=== PATIENT | female | born 1960 | race African-American/Black ===

== ENCOUNTER 2021-12-07 12:49 | Emergency (ER) | payer MEDICAID ==
[~2021-12-07] VITALS: Ht 165.1 cm; Wt 79.0 kg
[~2021-12-07 12:49] MED LIST: CHOL100046 PO; GABA-290 PO; MULT-1146 PO; OYSTER SHELL CA PO; SULF1TAB48 PO; [UNRECOGNIZED DRUG - OTHER] PO; prezista PO; vitamin c PO
[2021-12-07] MEDS ORDERED: ACETAMINOPHEN 325MG TABLET PO ONE (13:30)
[2021-12-07] MEDS ORDERED: KETOROLAC 30MG/ML VIAL IV STA (14:03)
[2021-12-07] MEDS ORDERED: ONDANSETRON 4MG ODT PO STA (14:03)
[2021-12-07 15:10] LABS: BASOPHILS % 0.4 % (0.0-2.0); EOSINOPHILS % 0.4 % (0.0-5.0); HEMATOCRIT. 31.1 % (36.0-48.0); HEMOGLOBIN. 10.1 g/dL (12.0-16.0); MEAN CORPUSCULAR HEMOGLOBIN 29.6 pg (28.0-32.0); MEAN CORPUSCULAR VOLUME 91.7 fL (81.0-99.0); MEAN PLATELET VOLUME 9.7 fl (7.4-10.4); MONOCYTES % 8.5 % (2.0-8.0); NEUTROPHILS % 75.7 % (40.0-76.0); PLATELET 287 x1000/uL (130-400); RED CELL DISTRIBUTION WIDTH 13.3 % (11.6-14.6)
[2021-12-07 15:16] LABS: CHLORIDE 103 mEq/L (98-107)
[2021-12-07] MEDS ORDERED: NAPROXEN 250MG TABLET PO NR (16:15)
[2021-12-07] MEDS ORDERED: BICT1TAB PO (16:47)
[2021-12-07] MEDS ORDERED: TOPUD MT (16:47)
[2021-12-07 17:13] VITALS: BP 144/68
== END 2021-12-07 17:15 | disposition home or self-care (01) ==
LOC: ER 12:49
DX: U07.1 COVID-19 (principal); D53.9 Nutritional anemia, unspecified; R74.01 Elevation of levels of liver transaminase levels
CPT/HCPCS: 36415; 71045; 80053; 83605; 85025; 87426; 93005; 96374; 99285; J1885; Q0162

== ENCOUNTER 2023-09-04 20:21 | Emergency (ER) | payer MEDICAID ==
[~2023-09-04] VITALS: Ht 165.1 cm; Wt 62.0 kg
[2023-09-04 21:07] VITALS: BP 156/105; PULSE 103; RESP 16; TEMP 99.1; O2SAT 99
[2023-09-05] MEDS ORDERED: AZIT250T12 MT (00:37)
[2023-09-05] MEDS ORDERED: AMOX1TAB16 MT (00:37)
[2023-09-05] MEDS ORDERED: ALBU6.7H15 INH (00:37)
[2023-09-05] MEDS ORDERED: P50 MT (00:37)
== END 2023-09-05 01:37 | disposition home or self-care (01) ==
LOC: ER 20:21
DX: K62.5 Hemorrhage of anus and rectum (principal); F41.9 Anxiety disorder, unspecified; I10 Essential (primary) hypertension; F17.200 Nicotine dependence, unspecified, uncomplicated; F14.90 Cocaine use, unspecified, uncomplicated
CPT/HCPCS: 71045; 99283